=== PATIENT | male | born 1955 | race Caucasian/White ===

== ENCOUNTER 2022-03-05 16:39 | Emergency (ER) | payer MEDICARE, MEDICAID ==
[~2022-03-05] VITALS: Ht 177.8 cm; Wt 52.0 kg
[2022-03-05 16:40] VITALS: BP 140/98
== END 2022-03-05 19:51 | disposition left against medical advice (07) ==
LOC: ER 16:39
DX: R55 Syncope and collapse (principal); Z53.21 Procedure and treatment not carried out due to patient leaving prior to being seen by health care provider